=== PATIENT | female | born 1990 | race Caucasian/White ===

== ENCOUNTER 2016-12-02 11:19 | Emergency (ER) | payer BC ==
[~2016-12-02] VITALS: Ht 160 cm; Wt 83.0 kg
[~2016-12-02 11:19] MED LIST: AMO500 PO; IBUP-1542 PO; NPH10OT LEFT EAR
[2016-12-02 11:21] VITALS: Ht 160 cm; Wt 83.0 kg
[2016-12-02] MEDS ORDERED: ONDANSETRON 4 MG INJ IV STA (11:49)
[2016-12-02] MEDS ORDERED: SOD CHLORIDE 0.9% 1,000 ML IV ONE (12:00)
[2016-12-02] MEDS ORDERED: ACETAMINOPHEN 1000MG/100ML IV 100 ML IVPB ONE (12:00)
[2016-12-02] MEDS ORDERED: ONDANSETRON 4 MG INJ ONE (12:11)
--- NOTE | 2016-12-02 12:32 | ERD ---
ER Documentation Chief Complaint Date/Time DATE: 12/02/16 TIME: 12:32 Chief Complaint NAUSEA, VOMITING, DIARRHEA SINCE 0200 THIS MORNING HPI This is a 26-year-old female who presents to emergency department today complaining of nausea and vomiting and diarrhea that started this morning. Patient also states she has some sinus congestion as well as some continued ear pain. States she is unable to keep anything down. States that approximately one month ago she was seen by her primary care doctor and was given Claritin was told that she had the flu. Patient was seen here a couple of days ago and was given antibiotics for an earache. She states she only gets stomach pain right before she vomits. ROS All systems reviewed and are negative except as per history of present illness. Medications Home Meds Active Scripts Acetaminophen* (Tylophen*) 500 Mg Capsule, 1 CAP PO Q6H Y for PAIN AND OR ELEVATED TEMP, #30 CAP Prov:ARACELY PRIDE PA-C 12/02/16 Ibuprofen* (Motrin*) 600 Mg Tab, 600 MG PO Q6, #30 TAB Prov:ARACELY PRIDE PA-C 12/02/16 Loperamide Hcl* (Imodium*) 2 Mg Capsule, 2 MG PO .AFTER EA LOOSE BM Y for DIARRHEA, #10 TAB Prov:ARACELY PRIDE PA-C 12/02/16 Fluticasone Propionate (Flonase Allergy Relief) 9.9 Ml [place].susp, 1 SPRAY NASAL BID, #1 BOTTLE TO EACH NOSTRIL Prov:ARACELY PRIDE PA-C 12/02/16 Ondansetron Hcl* (Zofran*) 4 Mg Tablet, 4 MG PO Q6H for NAUSEA AND/OR VOMITING, #30 TAB Prov:ARACELY PRIDE PA-C 12/02/16 Amoxicillin* (Amoxicillin*) 500 Mg Cap, 500 MG PO TID for 7 Days, CAP Prov:DELMAR MENDEZ PA-C 11/26/16 Neomycin/Polymyxin/Hydrocort* (Cortisporin* Otic) 10 Ml Susp, 4 DROP LEFT EAR QID for 7 Days, EA Prov:DELMAR MENDEZ PA-C 11/26/16 Ibuprofen* (Motrin*) 600 Mg Tab, 600 MG PO Q6, #30 TAB Prov:DELMAR MENDEZ PA-C 11/26/16 Allergies Allergies: Coded Allergies: No Known Allergy (Unverified , 12/02/16) PMhx/Soc History of Surgery: No Anesthesia Reaction: No Hx Neurological Disorder: No Hx Respiratory Disorders: No Hx Cardiac Disorders: No Hx Psychiatric Problems: No Hx Miscellaneous Medical Probl: Yes (CURRENTLY TAKING ABX FOR OTITIS MEDIA) Hx Alcohol Use: Yes (SOCIALLY) Hx Substance Use: No Hx Tobacco Use: No Smoking Status: Never smoker Physical Exam Vitals Vital Signs Date Time Temp Pulse Resp B/P Pulse Ox O2 Delivery O2 Flow Rate FiO2 12/02/16 11:21 101.0 110 18 169/90 96 Physical Exam Const: No acute distress Head: Atraumatic Eyes: Normal Conjunctiva ENT: Ears TMs normal. Nose no drainage. Throat no erythema no exudate. Neck: Full range of motion..~ No meningismus. Resp: Clear to auscultation bilaterally. No absent breath sounds. No wheezing. Cardio: Regular rate and rhythm, no murmurs Abd: Soft, non tender, non distended. Normal bowel sounds. No right lower quadrant pain. No tenderness at McBurney's. No left lower quadrant pain. Skin: No petechiae or rashes Back: No midline or flank tenderness Ext: No cyanosis, or edema Neur: Awake and alert Psych: Normal Mood and Affect Result Diagram: 12/02/16 1310 12/02/16 1310 Results 24 hrs Laboratory Tests Test 12/02/16 13:10 Alanine Aminotransferase (ALT/SGPT) 20IU/L Albumin 4.0g/dl Albumin/Globulin Ratio 1.25 Alkaline Phosphatase 79IU/L Anion Gap 16 Aspartate Amino Transf (AST/SGOT) 22IU/L Basophils # 0.010^3/ul Basophils % 0.4% Blood Morphology Comment Blood Urea Nitrogen 12mg/dl Calcium Level 8.1mg/dl Carbon Dioxide Level 24mmol/L Chloride Level 107mmol/L Creatinine 0.46mg/dl Differential Comment AUTO w/SCAN Direct Bilirubin 0.00mg/dl Eosinophils # 0.010^3/ul Eosinophils % 0.0% Globulin 3.20g/dl Glucose Level 95mg/dl Hematocrit 37.0% Hemoglobin 12.6g/dl Indirect Bilirubin 0.4mg/dl Lipase 37U/L Lymphocytes # 0.410^3/ul Lymphocytes % 2.8% Mean Corpuscular Hemoglobin 29.3pg Mean Corpuscular Hemoglobin Concent 34.2g/dl Mean Corpuscular Volume 85.8fl Mean Platelet Volume 7.2fl Monocytes # 0.410^3/ul Monocytes % 3.2% Neutrophils # 11.710^3/ul Neutrophils % 93.6% Nucleated Red Blood Cells # 0.010^3/ul Nucleated Red Blood Cells % 0.0/100WBC Platelet Count 74632^3/UL Potassium Level 3.6mmol/L Red Blood Count 4.3110^6/ul Red Cell Distribution Width 12.9% Sodium Level 143mmol/L Total Bilirubin 0.4mg/dl Total Protein 7.2g/dl White Blood Count 12.510^3/ul Current Medications Medications (Trade) Dose Ordered Sig/Ace Route PRN Reason Start Time Stop Time Status Last Admin Dose Admin Ondansetron HCl 4 mg 4 mg ONCE STAT IV 12/02/16 11:49 12/02/16 11:51 DC 12/02/16 12:12 Acetaminophen 100 ml @ 400 mls/hr ONCE ONCE IVPB 12/02/16 12:00 12/02/16 12:17 DC 12/02/16 12:25 Sodium Chloride (NS) 1,000 ml @ 1,000 mls/hr Q1H ONCE IV 12/02/16 12:00 12/02/16 12:59 DC 12/02/16 12:12 RUN DATE: 12/02/16 [facility] PAGE 1 RUN TIME: [id number] [place] [address] Jeremy Bragg M.D. [employer] VENECIA#: [id number] Name: MARISEL MISHRA Age/Sex: 26/F Attend Dr: MEENAKSHI LEE MD Acct: [id number] MR# : [id number] : 1990 Location: [facility] Admit: 12/02/16 Specimen: [id number] Status: Complete Wesley: 12/02/16 Rcvd: 12/02 Source: [facility] Descrip: Procedure Result Microbiology INFLUENZA A & B BY EIA Final INFLU A&B BY EIA INFLUENZA A NEGATIVE (Ref Range Neg) INFLUENZA B NEGATIVE (Ref Range Neg) ................................................................................ ............ Flags: Critical Hi = *H Critical Lo = *L Microbiology Abnormal = * Abnormal Hi = H Abnormal Lo = L Blood Bank Abnormal = * Susceptability Flags: S = Sensitive R = Resistant I = Intermediate END OF REPORT Procedures/MDM This a 26-year-old female presents to the emergency department today complaining of nausea vomiting and diarrhea. Patient was febrile and tachycardic here in the emergency department. I did obtain laboratory work as well as a UA and urine test. Laboratory work shows a mildly elevated white blood cell count. She is not anemic. Platelets are within normal limits. Electrolytes are within normal limits. Liver function is within normal limits. Lipase is within normal limits. UA is negative for infection. Urine test is negative. Influenza A and B is negative. Patient had no abdominal pain on physical examination I do not feel that that she requires a CT scan at this time. Low suspicion for any acute surgical abdomen. Patient stated that she did continue to have some mild ear pain and that her ear felt like it was congested. There is no TM erythema on physical exam. Patient may have an element of eustachian tube dysfunction given that she has had this upper respiratory infection as well. Patient symptoms at this time consistent with nausea vomiting and diarrhea, likely viral. I have low suspicion for strep pharyngitis, peritonsillar abscess , retropharyngeal abscess, otitis media, PNA, sinusitis, abscess, meningitis, sepsis, or other acute infectious bacterial process. Patient was given Tylenol and fluids and Zofran here in the emergency department the patient reported feeling better. I will give her Zofran and Imodium for home. I also give her Flonase as well Tylenol and Motrin. May continue taking her Zyrtec and amoxicillin. At this time the patient is stable for discharge and outpatient management. Patient should follow up with their PCP in the next 1-2 days. They may return to the emergency department sooner for any persistent or worsening of symptoms. Patient understood and agreed with the plan. Discussed the case with Dr. Lee and he is in agreement with the plan. Departure Diagnosis: Primary Impression: Nausea vomiting and diarrhea Condition: ARACELY Valdez PA-C Dec 02, 2016 12:32
[2016-12-02 13:30] LABS: POTASSIUM 3.6 mmol/L (3.5-5.1)
[2016-12-02 13:32] LABS: BILIRUBIN,INDIRECT 0.4 mg/dl (0-1.1); BILIRUBIN,TOTAL 0.4 mg/dl (0.2-1.3); CREATININE 0.46 mg/dl (0.44-1.00)
[2016-12-02 13:33] LABS: ALBUMIN/GLOBULIN RATIO 1.25; CALCIUM 8.1 mg/dl (8.4-10.2); TOTAL PROTEIN 7.2 g/dl (6.1-8.1)
[2016-12-02 13:36] LABS: BASOPHILS % 0.4 % (0.0-2.0); HEMOGLOBIN 12.6 g/dl (12.0-16.0); LYMPHOCYTES # 0.4 10^3/ul (0.8-2.9); LYMPHOCYTES % 2.8 % (15.0-51.0); MEAN CORPUSCULAR HEMOGLOBIN 29.3 pg (29.0-33.0); MEAN CORPUSCULAR HGB CONC 34.2 g/dl (32.0-37.0); MEAN CORPUSCULAR VOLUME 85.8 fl (82.0-101.0); MEAN PLATELET VOLUME 7.2 fl (7.4-10.4); MONOCYTE # 0.4 10^3/ul (0.3-0.9); MONOCYTES % 3.2 % (0.0-11.0); NEUTROPHIL # 11.7 10^3/ul (1.6-7.5); NEUTROPHILS % 93.6 % (39.0-77.0); PLATELET COUNT 258 10^3/UL (140-440); RED BLOOD COUNT 4.31 10^6/ul (4.20-5.40); RED CELL DISTRIBUTION WIDTH 12.9 % (11.5-14.5); UNCORRECTED WBC 12.5 10^3/ul (4.8-10.8); WHITE BLOOD COUNT 12.5 10^3/ul (4.8-10.8)
[2016-12-02 13:42] LABS: CONDITION 1; LH ANALYZER COMMENTS 1
[2016-12-02] MEDS ORDERED: FLUT9.9S NASAL (14:11)
[2016-12-02] MEDS ORDERED: ONDA4TAB8 PO (14:11)
[2016-12-02] MEDS ORDERED: LOPE2CAP PO (14:11)
[2016-12-02] MEDS ORDERED: ACET500C5 PO (14:14)
[2016-12-02] MEDS ORDERED: IBUP-1542 PO (14:14)
[2016-12-02 14:26] VITALS: BP 134/71; PULSE 93; RESP 18; TEMP 97.9
== END 2016-12-02 14:28 | disposition home or self-care (01) ==
LOC: FTE 11:19
DX: R11.2 Nausea with vomiting, unspecified (principal); R19.7 Diarrhea, unspecified
CPT/HCPCS: 80053; 83690; 85025; 87400; 96374; 96375; 99284; J0131; J7030; J2405